=== PATIENT | male | born 1935 | race Caucasian/White ===

== ENCOUNTER 2016-11-17 15:08 | Outpatient (CLI) | payer OTHER ==
[~2016-11-17 15:08] MED LIST: ALPRAZOLAM0.5 MG PO; AMLODIPINE BESYL5 MG PO; ASPIRIN ADULT L81 MG PO; ATENOLOL25 MG PO; CITALOPRAM HYDR20 MG PO; CRESTOR10 MG PO; DONEPEZIL HCL5 M1 PO; ENTERIC COATED325 M1 PO; FUROSEMIDE40 MG PO; KLOR-CON 1010 MEQ PO; LASIX40 MG PO; LEVOTHYROXINE50 MCG PO; LISINOPRIL10 MG PO; MULTIPLE VITAMIN PO; PRILOSEC20 MG PO; VITAMIN B-122000 MCG; VITAMIN C500 M1 PO
--- NOTE | 2016-11-17 16:57 | DIAGNOSTIC IMAGING REPORT ---
PROCEDURE: XR CHEST 2 VIEW INDICATION: COUGH, initial encounter TECHNIQUE: PA and lateral view. COMPARISON: Chest x-ray 06/07/2015 FINDINGS: Lungs are clear. Heart size, mediastinum and pulmonary vessels are normal. Tortuous aorta. Chronic moderate to large hiatal hernia with associated surgical clips and wires. Bony thorax is unremarkable. IMPRESSION: 1. No acute changes 2. Chronic hiatal hernia
== END 2016-11-17 23:00 ==
LOC: XR SRH 15:08
DX: R53.83 Other fatigue (principal); R05 Cough

== ENCOUNTER 2016-12-26 14:33 | Emergency (ER) | payer OTHER ==
--- NOTE | 2016-12-26 15:36 | DIAGNOSTIC IMAGING REPORT ---
PROCEDURE: XR SHOULDER 2 OR MORE VW-LEFT INDICATION: TRAUMA/INJURY TECHNIQUE: Three views. COMPARISON: None. FINDINGS: Osseous structures and joint spaces are normal. No fracture or dislocation. IMPRESSION: 1. Normal left shoulder.
--- NOTE | 2016-12-26 15:40 | DIAGNOSTIC IMAGING REPORT ---
PROCEDURE: XR RIBS UNILAT W/PA CHEST-LT INDICATION: TRAUMA/INJURY TECHNIQUE: Two views of the left ribs with single PA view chest. COMPARISON: None. FINDINGS: LEFT RIBS: No displaced rib fractures. No suspicious rib lesions. CHEST: Hiatal hernia. Clear lungs without pleural effusion, pneumothorax, or contusion. The other visible osseous structures are intact. IMPRESSION: 1. Intact left ribs. 2. Normal chest without radiographic evidence of trauma.
--- NOTE | 2016-12-26 15:46 | ED ORDER SUMMARY ---
..... Patient: BRYAN WU OrderSheet [facility] VisitID: [id number] [address] [place] [address] 81y, M Registration Date/Time: 12/26/2016 ORDER SHEET Weight: 81.6 kg (stated) Allergies: Adhesive Tape, Iodine, Penicillins GENERAL ORDERS: Shoulder 2V or more Left Urgent (14:50 12/26/2016 HBivens A.R.N.P.) (Ack 14:53 AMcQuoid ER Tech1) (15:12 AMcQuoid ER Tech1) Ribs Unilat w PA Chest Left Urgent (14:50 12/26/2016 HBivens A.R.N.P.) (Ack 14:53 AMcQuoid ER Tech1) (15:12 AMcQuoid ER Tech1) MEDICATION ORDERS: IV FLUIDS: ORDER SHEET NOTES: [Electronically signed by Indu PlummerR.N.P. (16:34 12/26/2016)] [Electronically signed by Glenn Cash R.N. (16:37 12/26/2016)] [Electronically locked/signed by Glenn Cash R.N. (16:37 12/26/2016)]
--- NOTE | 2016-12-26 15:46 | ED CLINICAL REPORT ---
Clinical Report - Physicians/Mid Levels [facility] [address] [place] [address] 12/26/2016 14:33 Patient: BRYAN WU Time Seen: 14:41; upon arrival, initial patient contact, initial documentation, patient care assumed. Arrived- By private vehicle. Historian- patient. HISTORY OF PRESENT ILLNESS Chief Complaint: FALL. Location of injuries- chest and left shoulder and left elbow. The injury occurred about 4 days ago. Fell from a height off a chair and landed on a hard surface; became dizzy (sitting on toilet, got dizzy headed and fell on L side onto floor). Occurred at home. The patient complains of moderate pain. No blow to the head, neck pain, loss of consciousness or seizure. Not dazed. REVIEW OF SYSTEMS No numbness, dizziness, difficulty breathing, weakness or abdominal pain. No laceration. He has had chest pain (pain under L armpit rib area) but no pain on weight bearing. All systems otherwise negative, except as recorded above. PAST HISTORY See nurses notes. PROBLEMS: Heart Disease. Anxiety Reaction. Hyperlipidemia. Dislocated Hip. Diarrhea. GI Bleeding. Atrial Fibrillation. Thyroid Disease. Depression. Hypertension. Cholesterol problems. Bladder issues. . --14:59 Glenn Cash RSujataN. CVA - Cerebrovascular Accident [RuleOut]. --14:59 Glenn Cash R.N. ADDITIONAL SURGERIES: Angiography. Hiatal hernia. Hip Surgery. Shoulder Surgery. 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 --14:59 Glenn Cash, R.N. SOCIAL HISTORY Never smoker. No alcohol use or drug use. No recent travel. Is a local resident. FAMILY HISTORY No significant family medical history. ADDITIONAL NOTES The nursing notes have been reviewed with agreement regarding the chief complaint, HPI, ROS, PMH and patient medications and allergies. PHYSICAL EXAM Vital Signs: 12/26/2016 15:02 BP: 117/63. HR: 74. RR: 16. O2 saturation: 93%. Temp: 99 F. Pain level now: 10. Have been reviewed as normal and appear to be correct. Appearance: Alert. Oriented X3. No acute distress. Head: Head non-tender. No swelling of head. Eyes: Pupils equal, round and reactive to light. EOM intact. ENT: No dental injury. Pharynx normal. Neck: Painless ROM. Non-tender. CVS: Heart sounds normal. Pulses normal. Respiratory: Chest tender. Chest wall injury: mild tenderness located in the upper, left and anterior chest. No swelling. No laceration. No abrasion. No ecchymosis. No deformity. No injury to the costal cartilage, sternum, manubrium or xiphoid. No splinting present. No paradoxical movement. Breath sounds normal. Abdomen: No visible injury. Soft and nontender. Back: No tenderness. ROM normal. Skin: Skin intact. Skin warm and dry. Normal skin color. Normal skin turgor. Extremities: Abnormal inspection. Extremities not atraumatic. Left shoulder: moderate tenderness, mild swelling and medium sized ecchymosis located in the anterior aspect of the shoulder and distal clavicle. Limited ROM due to pain (diminished abduction). Neurovascular intact distally. No erythema, laceration, abrasion, puncture wound or foreign body. No deformity. No joint effusion. Left elbow: small ecchymosis located in the area of the radial head. Neurovascular intact distally. No erythema, tenderness, swelling, laceration or abrasion. No puncture wound, foreign body or deformity. No joint effusion or limitation in ROM. Pelvis stable. No lower extremity edema. Neuro: Oriented X 3. No motor deficit. No sensory deficit. LABS, X-RAYS, AND EKG X-Rays: Rib series negative. Left shoulder negative. Sternum / Ribs X-rays: (IMPRESSION: 1. Intact left ribs. 2. Normal chest without radiographic evidence of trauma. Electronically Final signed by:Pranav Vallecillo MD 12/26/2016 3:43:56 PM). The X-rays were interpreted by the radiologist and contemporaneously by me. Lt Shoulder X-ray: (IMPRESSION: 1. Normal left shoulder. Electronically Final signed by:Pranav Vallecillo MD 12/26/2016 3:40:42 PM). The X-rays were interpreted by the radiologist and contemporaneously by me. PROGRESS AND PROCEDURES Patient counseled in person regarding the patient's stable condition, test results and diagnosis. 15:41. Differential Diagnosis: Other possible considerations: fall, fx, contusions, sprains, dislocations. Above considerations are based on history, physical exam and X-Ray data. Differential diagnosis was discussed with patient. Disposition: Discharged home in good and unchanged condition (15:46). Condition: good and stable. CLINICAL IMPRESSION Single contusion to the left shoulder.No hematoma or skin abrasion. Muscle strain of the anterior chest wall. Fall from chair. INSTRUCTIONS Warnings: GENERAL WARNINGS: Return or contact your physician immediately if your condition worsens or changes unexpectedly, if not improving as expected, or if other problems arise. anything worsens or concerns. Follow-up: Follow up with your doctor in about one week as needed. Call for an appointment. Summary of care provided to patient. Understanding of the discharge instructions verbalized by patient. (Electronically signed by Indu Plummer A.R.N.P. 12/26/2016 16:34)
--- NOTE | 2016-12-26 15:46 | ED NURSING NOTES ---
Clinical Report - Nurses [facility] [address] [place] [address] 12/26/2016 14:33 Patient: BRYAN WU TRIAGE Triage time 14:41 Dec 26 2016. --14:42 Glenn Cash R.N. Acuity: LEVEL 3. Chief Complaint: FALL. Alert. VENUS COMA SCORE: Venus Coma Scale: 15- eyes open spontaneously (4); best verbal response- oriented x 4 (5); best motor response- obeys commands (6). --15:01 Glenn Cash R.N. 15:02 12/26/16. BP: 117/63. HR: 74 (irregularly-irregular). RR: 16. O2 saturation: 93% on room air. Temp: 99 F. Pain level now: 710. Additional comments: (L) shoulder and (L) Rib pain. --15:17 Glenn Cash R.N. Weight: 81.6 kg stated. Height/Length: 58 inches Per Patient. BMI: 37.6. --14:48 Glenn Cash R.N. Medications ALPRAZolam Oral (Tablet 0.5 mg) 1/2 tablet, daily. AmLODIPine Besylate Oral (Tablet 5 mg) 1/2 tablet, daily. Atenolol Oral 25 mg, daily. Citalopram Hydrobromide Oral (Tablet 20 mg) 1 tablet, daily. Crestor Oral 40 mg, daily. Donepezil HCl Oral (Tablet 5 mg) 1 tablet, daily. Lasix Oral (Tablet 40 mg) 1-1/2 tablets, daily. Levothroid Oral 50 mcg, daily. Lisinopril Oral 20 mg, 2x a day. Potassium Chloride Oral 20 meq, 2x a day. Vit B 2 2,500 mcg, daily. Vitamin c Oral 500 mg, daily. Vitamin D Oral (Tablet 1000 unit) 1 tablet, daily. Vitamins/Minerals Oral, daily. --14:52 Glenn Cash R.N. Carafate Oral. --14:52 Glenn Cash R.N. Lasix Oral. --14:53 Glenn Cash R.N. Aspirin Oral. --14:53 Glenn Cash R.N. Hydrocortisone External. --14:54 Glenn Cash R.N. Oxybutynin Chloride Oral. --14:55 Glenn Cash R.N. Allergies Adhesive Tape. Definite Moderate(rash) Iodine. Definite(rash) Penicillins. --14:52 Glenn Cash R.N. Medication/allergy information source: the patient. --15:01 Glenn Cash R.N. History ( GLF to the (L) Side 4 days ago.). --14:42 Glenn Cash R.N. Arrived by private vehicle. Historian: patient. Accompanied by spouse. Primary physician (Rosa). ( Pt states that he was sitting on the toile and his head started spinning and he fell injuring his (L) chest and (L) Shoulder). Location of injuries: left shoulder. This occurred (about 4 days ago). ( (L) Shoulder Pain. (L) Chest Pain (ribs)). No injury to the left breast. Treatment CERAMICS ARTIST: None. PAST MEDICAL HX: Tetanus status: up-to-date. Immunizations: seasonal influenza: first dose. SOCIAL HX: Never smoker. Alcohol use. (hasn't drank in 40 years). No drug use. No infectious disease exposure. ABUSE ASSESSMENT: No report of abuse. FALL RISK ASSESSMENT: Fall risk assessment completed. No fall risk identified. NUTRITIONAL RISK ASSESSMENT: The nutritional risk assessment revealed no deficiencies. LEARNING NEEDS ASSESSMENT: The learning needs assessment revealed no barriers. SKIN INTEGRITY ASSESSMENT: Skin integrity risk assessment completed. No skin integrity risk identified. --15:01 Glenn Cash R.N. PROBLEMS: Heart Disease. Anxiety Reaction. Hyperlipidemia. Dislocated Hip. Diarrhea. GI Bleeding. Atrial Fibrillation. Thyroid Disease. Depression. Hypertension. Cholesterol problems. Bladder issues. . --14:59 Glenn Cash R.N. CVA - Cerebrovascular Accident [RuleOut]. --14:59 Glenn Cash R.N. ADDITIONAL SURGERIES: Angiography. Hiatal hernia. Hip Surgery. Shoulder Surgery. 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 --14:59 Glenn Cash R.N. Interventions ID band on patient. To treatment room. --15:01 Glenn Cash R.N. PHYSICAL ASSESSMENT Ambulatory to room. GENERAL / NEURO / PSYCH: Alert. Oriented X 4. Appears in pain. RESPIRATORY: Respirations not labored. CVS: Normal heart rate and rhythm. GI / : Abdomen soft and nontender. EXTREMITIES: Neuro-vascular status intact to the extremity. SKIN: Skin intact. Skin is warm and dry. ( bruising (L) shoulder). --15:02 Glenn Cash R.N. NURSING PROGRESS NOTES Patient gowned. Reassurance given. Patient identifiers checked. Call light placed in reach. Side rails up x 2. Bed placed in lowest position. Brakes of bed on. Patient ready for evaluation- chart flagged and ED physician notified. --15:01 Glenn Cash R.N. Patient transported to radiology by stretcher with tech. --15:01 Glenn Cash R.N. 15:11 12/26/16. Patient returned from radiology by stretcher with tech. --15:12 Glenn Cash R.N. <<STRICKEN ENTRY-- 15:20 12/26/16. ( Up to BSC and passing stool.). --15:21 Glenn Cash R.N. --END STRIKE>> Correction --15:23 Glenn Cash R.N. DISPOSITION / DISCHARGE 15:40 12/26/16. BP: 116/70. HR: 72 (irregularly-irregular). RR: 16. O2 saturation: 95% on room air. Temp: 99 F. Pain level now: 04/08. --16:30 Glenn Cash R.N. Departure time: 1545. --16:30 Glenn Cash R.N. 15:45. Condition at departure: improved. No learning barriers present. Discharge instructions provided and reviewed with the patient. Reviewed medication(s) (continue your usual medications). Reviewed referral to family practice for followup. Patient and spouse verbalized understanding. Written instructions provided in Persian. The patient was discharged by the physician. He was discharged home and accompanied by spouse. He left the Emergency Department ambulatory and via private vehicle. Spouse driving. --16:32 Glenn Cash R.N. Locked/Released at 12/26/2016 16:37 by Glenn Cash R.N.
--- NOTE | 2016-12-26 15:46 | ED ORDER SUMMARY ---
..... Patient: BRYAN WU OrderSheet [facility] VisitID: [id number] [address] [place] [address] 81y, M Registration Date/Time: 12/26/2016 ORDER SHEET Weight: 81.6 kg (stated) Allergies: Adhesive Tape, Iodine, Penicillins GENERAL ORDERS: Shoulder 2V or more Left Urgent (14:50 12/26/2016 HBivens A.R.N.P.) (Ack 14:53 AMcQuoid ER Tech1) (15:12 AMcQuoid ER Tech1) Ribs Unilat w PA Chest Left Urgent (14:50 12/26/2016 HBivens A.R.N.P.) (Ack 14:53 AMcQuoid ER Tech1) (15:12 AMcQuoid ER Tech1) MEDICATION ORDERS: IV FLUIDS: ORDER SHEET NOTES: [Electronically signed by Indu PlummerR.N.P. (16:34 12/26/2016)] [Electronically signed by Glenn Cash R.N. (16:37 12/26/2016)] [Electronically locked/signed by Glenn Cash R.N. (16:37 12/26/2016)]
--- NOTE | 2016-12-26 16:37 | ED MED RECONCILIATION SUMMARY ---
Patient: BRYAN WU Medication Reconciliation Report [facility] VisitID: [id number] [address] [place] [address] 81y, M Registration Date/Time: 12/26/2016 Weight: 81.6 kg Height/Length: 58 in. BMI: 37.6 ALLERGIES: Adhesive Tape, Iodine, Penicillins The patient's Home Medications are listed below: THE FOLLOWING MEDICATIONS NEED TO BE RECONCILED: ALPRAZolam Oral (0.5 mg) 1/2 tablet, daily AmLODIPine Besylate Oral (5 mg) 1/2 tablet, daily Aspirin Oral Atenolol Oral 25 mg, daily Carafate Oral Citalopram Hydrobromide Oral (20 mg) 1 tablet, daily Crestor Oral 40 mg, daily Donepezil HCl Oral (5 mg) 1 tablet, daily Hydrocortisone External Lasix Oral Lasix Oral (40 mg) 1-1/2 tablets, daily Levothroid Oral 50 mcg, daily Lisinopril Oral 20 mg, 2x a day Oxybutynin Chloride Oral Potassium Chloride Oral 20 meq, 2x a day Vit B 2 2,500 mcg, daily Vitamin c Oral 500 mg, daily Vitamin D Oral (1000 unit) 1 tablet, daily Vitamins/Minerals Oral, daily The source(s) of the original Home Medication information: patient The following Medications were given to the patient in the Emergency Department: None. The following Medications were prescribed to the patient: None.
--- NOTE | 2016-12-26 16:37 | ED MAR SUMMARY ---
..... Medication Administration Record [facility] [address] [place], [place] [id number] Patient: BRYAN WU Visit ID: [id number] 81y, M Weight: 81.6 kg Height/Length: 58 in BMI: 37.6 ALLERGIES: Adhesive Tape, Iodine, Penicillins
--- NOTE | 2016-12-26 16:37 | ED DISCHARGE INSTRUCTIONS ---
Patient: BRYAN WU General Instructions [facility] VisitID: [id number] [place] [address] 81y, M Registration Date/Time: 12/26/2016 Single contusion to the left shoulder.No hematoma or skin abrasion. Muscle strain of the anterior chest wall. Fall from chair. INSTRUCTIONS Warnings: GENERAL WARNINGS: Return or contact your physician immediately if your condition worsens or changes unexpectedly, if not improving as expected, or if other problems arise. anything worsens or concerns. Follow-up: Follow up with your doctor in about one week as needed. Call for an appointment. Summary of care provided to patient. Understanding of the discharge instructions verbalized by patient. ADDITIONAL INFORMATION Mechanical Fall You have had a fall today. It appears that the cause is mechanical. That means that you slipped, tripped or lost your balance. If your fall had been due to fainting or a seizure, further tests would be required. Home Care: Rest today and resume your normal activities when you are feeling back to normal. If you were injured during the fall, follow the advice from your doctor regarding care of your injury. You may use acetaminophen (Tylenol) or ibuprofen (Motrin, Advil) to control pain, unless another pain medicine was prescribed. [NOTE: If you have chronic liver or kidney disease or ever had a stomach ulcer or GI bleeding, talk with your doctor before using these medicines.] Fall Prevention: Was there anything that caused your fall that can be fixed, removed, or replaced? Make your home safe by keeping walkways clear of objects you may trip over. Use non-slip pads under rugs. Do not walk in poorly lit areas. Do not stand on chairs or wobbly ladders. Use caution when reaching overhead or looking upward. This position can cause a loss of balance. Be sure your shoes fit properly, have non-slip bottoms and are in good condition. Be cautious when going up and down curbs, and walking on uneven sidewalks. If your balance is poor, consider using a cane or walker. Stay as active as you can. Balance, flexibility, strength, and endurance all come from exercise. They all play a role in preventing falls. Follow Up with your doctor or as advised by our staff. Get Prompt Medical Attention if any of the following occur: Repeated mechanical falls, or unexplained falls Dizziness, fainting or seizure Severe headache Chest pain or shortness of breath Palpitations (very rapid or very slow or irregular heartbeat) Blood in vomit, stools (black or red color) Weakness of an arm or leg or one side of the face Difficulty with speech or vision Chest Strain A strain of the chest is due to stretching and tearing of the muscle fibers between the ribs. This may occur as a result of severe coughing, strenuous lifting or twisting injuries of the upper back. This usually causes increased pain with movement or deep breathing. This may take a few days to a few weeks to heal. Home Care: Rest. Avoid heavy lifting or strenuous exertion. Avoid any activity that causes pain. If you have a severe cough, use a cough syrup such as Robitussin DM (containing dextromethorphan) unless another cough medicine was prescribed. You may use acetaminophen (Tylenol) or ibuprofen (Motrin, Advil) to control pain, unless another medicine was prescribed. [ NOTE: If you have chronic liver or kidney disease or ever had a stomach ulcer or GI bleeding, talk with your doctor before using these medicines.] Follow Up with your doctor as directed. Get Prompt Medical Attention if any of the following occur: A change in the type of pain: if it feels different, becomes more severe, lasts longer, or begins to spread into your shoulder, arm, neck, jaw or back Shortness of breath or increased pain with breathing Cough with dark colored sputum (phlegm) or blood Weakness, dizziness, or fainting Fever of 100.4F (38C) or higher, or as directed by your healthcare provider Contusion,Soft Tissue You have a CONTUSION, which is a bruise with swelling and some bleeding under the skin. There are no broken bones. This injury takes a few days to a few weeks to heal. Home Care: 1) Keep the injured part elevated to reduce pain and swelling. This is especially important during the first 48 hours. 2) Make an ice pack (ice cubes in a plastic bag, wrapped in a towel) and apply for 20 minutes every 1-2 hours the first day. Continue this 3-4 times a day until the pain and swelling goes away. 3) You may use acetaminophen (Tylenol) or ibuprofen (Motrin, Advil) to control pain, unless another pain medicine was prescribed. [ NOTE : If you have chronic liver or kidney disease or ever had a stomach ulcer or GI bleeding, talk with your doctor before using these medicines.] Follow Up with your doctor or this facility if you are not improving within the next THREE days. [NOTE: If X-rays were taken, they will be reviewed by a radiologist. You will be notified of any new findings that may affect your care.] Get Prompt Medical Attention if any of the following occur: -- Pain or swelling increases -- Injured arm or leg becomes cold, blue, numb or tingly -- Redness, warmth or drainage from the skin Shoulder Contusion You have a contusion of your shoulder. This causes local pain, swelling, and sometimes bruising. There are no broken bones. This injury takes a few days, or up to six weeks to heal, depending on the severity. Moderate to severe shoulder contusions are treated with a sling or shoulder immobilizer. Minor contusions can be treated without any special support. Home Care: If a sling was provided, leave it in place for the time advised by your doctor. If you are unsure how long to wear it, ask for advice. If the sling becomes loose, adjust it so that your forearm is level with the ground and the shoulder feels well supported. Apply an ice pack (ice cubes in a plastic bag, wrapped in a towel) over the injured area for 20 minutes every 1 to 2 hours the first day for pain relief. Continue this 3 to 4 times a day until the pain and swelling go away. You may use acetaminophen (Tylenol) or ibuprofen (Motrin, Advil) to control pain, unless another pain medicine was prescribed. (NOTE: If you have chronic liver or kidney disease or ever had a stomach ulcer or GI bleeding, talk with your doctor before using these medicines.) Shoulder joints become stiff if left in a sling for too long. Otenv-se-dlkzof exercises should usually be started within the first ten days after injury. Consult your doctor on what type of exercises to do and how soon to start. Unless you were told otherwise, you may remove the sling to shower or bathe. Follow Up with your doctor, or as advised by our staff, if you are not starting to improve within the next 5 days. Get Prompt Medical Attention if any of the following occur: Pain or swelling increases Large amount of bruising of the shoulder or upper arm Hand or fingers become cold, blue, numb or tingly You have been given the following additional information: Fall, Mechanical Chest Wall Strain Contusion, Soft Tissue Shoulder Contusion (Electronically signed by Indu Plummer A.R.N.P. 12/26/2016 16:34)
--- NOTE | 2016-12-26 16:37 | ED MAR SUMMARY ---
..... Medication Administration Record [facility] [address] [place], [place] [id number] Patient: BRYAN WU Visit ID: [id number] 81y, M Weight: 81.6 kg Height/Length: 58 in BMI: 37.6 ALLERGIES: Adhesive Tape, Iodine, Penicillins
--- NOTE | 2016-12-26 16:37 | ED MED RECONCILIATION SUMMARY ---
Patient: BRYAN WU Medication Reconciliation Report [facility] VisitID: [id number] [address] [place] [address] 81y, M Registration Date/Time: 12/26/2016 Weight: 81.6 kg Height/Length: 58 in. BMI: 37.6 ALLERGIES: Adhesive Tape, Iodine, Penicillins The patient's Home Medications are listed below: THE FOLLOWING MEDICATIONS NEED TO BE RECONCILED: ALPRAZolam Oral (0.5 mg) 1/2 tablet, daily AmLODIPine Besylate Oral (5 mg) 1/2 tablet, daily Aspirin Oral Atenolol Oral 25 mg, daily Carafate Oral Citalopram Hydrobromide Oral (20 mg) 1 tablet, daily Crestor Oral 40 mg, daily Donepezil HCl Oral (5 mg) 1 tablet, daily Hydrocortisone External Lasix Oral Lasix Oral (40 mg) 1-1/2 tablets, daily Levothroid Oral 50 mcg, daily Lisinopril Oral 20 mg, 2x a day Oxybutynin Chloride Oral Potassium Chloride Oral 20 meq, 2x a day Vit B 2 2,500 mcg, daily Vitamin c Oral 500 mg, daily Vitamin D Oral (1000 unit) 1 tablet, daily Vitamins/Minerals Oral, daily The source(s) of the original Home Medication information: patient The following Medications were given to the patient in the Emergency Department: None. The following Medications were prescribed to the patient: None.
== END 2016-12-26 15:45 | disposition home or self-care (01) ==
LOC: ED SRH 14:33
DX: S40.012A Contusion of left shoulder, initial encounter (principal); S29.011A Strain of muscle and tendon of front wall of thorax, initial encounter; W18.12XA Fall from or off toilet with subsequent striking against object, initial encounter; Y93.89 Activity, other specified; Y92.009 Unspecified place in unspecified non-institutional (private) residence as the place of occurrence of the external cause; Y99.9 Unspecified external cause status; I10 Essential (primary) hypertension; Z88.0 Allergy status to penicillin; Z91.041 Radiographic dye allergy status; Z79.899 Other long term (current) drug therapy